=== PATIENT | male | born 1985 | race Caucasian/White ===

== ENCOUNTER 2024-04-19 14:16 | Emergency (ER) | payer BC, SELFPAY ==
[2024-04-19 14:21] VITALS: BP 125/84; PULSE 77; TEMP 37.3; O2SAT 98; BMI 23.0
--- NOTE | 2024-04-19 14:29 | ECG_ITS ---
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
--- NOTE | 2024-04-19 14:29 | XR_ITS ---
The [address] [address] Patient Name: DARLENE NUNEZ MRN: [id number] date: 1985 Sex: M Assigned Patient Location: ER Current Patient Location: ER Accession/Order Number: [id number] Exam Date: 04/19/2024 14:48 Report Date: 04/19/2024 15:02 At the request of: GHANSHYAM GUILLORY Procedure: XR chest 2V EXAMINATION: XR chest 2V HISTORY: pain COMPARISON: No relevant comparison available. TECHNIQUE: PA and lateral FINDINGS: LUNGS: No significant pulmonary parenchymal abnormalities. VASCULATURE: No increased pulmonary vasculature. PLEURA: No pneumothorax, effusion, or pleural thickening. CARDIAC: No cardiomegaly or cardiac silhouette abnormality. MEDIASTINUM: No visible mass or adenopathy. BONES: No fracture or visible bone lesion. OTHER: Negative. XR/XR chest 2V IMPRESSION: No acute cardiopulmonary process Electronically authenticated by: MARCIANO HOLGUIN Date: 04/19/2024 15:02
--- NOTE | 2024-04-19 14:33 | ED.GENADUL1 ---
HPI HPI - General Adult General Chief complaint: Chest Pain Stated complaint: SOB, CHEST PAIN Time Seen by Provider: 04/19/24 14:17 Source: patient Mode of arrival: walk-in History of Present Illness HPI narrative: Patient presents to ED complaining of some chest and back pain. He also complains of fatigue and low-grade fevers. He said this started a couple of days ago. He was at work today and normally on his lunch break he just sort of relaxes but he was falling asleep on the lunch break. He said something must be wrong because he is never really this tired and he has pain in between his shoulder blades and in the chest. No shortness of breath, no cardiac history no family history of cardiac issues. No known sick contacts in the home. He denies sore throat and congestion. He does complain of a mild headache as well. Vital signs are normal here on arrival low-grade temp at 99.2 Related Data Previous Rx's ?Medication ?Instructions ?Recorded methylprednisolone 4 mg tablets in 4 mg PO DAILY #21 ea 04/19/24 a dose pack (Medrol (Jay)) Allergies Allergy/AdvReac Type Severity Reaction Status Date / Time No Known Drug Allergies Allergy Verified 04/19/24 14:24 Opioid HPI Opioid Management Most Recent Opioid Data: No Data to Display Review of Systems ROS Status of ROS 10 or more systems reviewed and unremarkable except as noted in history and below Exam Narrative Exam Narrative: Time Seen: [] Vital Signs: [Per nurse's notes.] General: [Alert] Skin: [Warm, dry, no rash.] Head: [Normocephalic, atraumatic.] Neck: [Supple, trachea midline.] Eye: [Pupils are equal, round and reactive to light, extraocular movements are intact, normal conjunctiva.] Ears, nose, mouth and throat: oral mucosa moist. Cardiovascular: [Regular rate and rhythm, no murmur.] Respiratory: [Lungs are clear to auscultation, respirations are non-labored, breath sounds are equal.] Chest wall: [No tenderness, no deformity.] Gastrointestinal: [Soft, nontender, non distended, normal bowel sounds.] MSK: 5 out of 5 muscle strength x 4 extremities no calf pain or edema Lymphatics: [No lymphadenopathy.] Psychiatric: [Cooperative, appropriate mood & affect.] Neurological: [Alert and oriented to person, place, time, and situation, no focal neurological deficit observed.] Constitutional Vital Signs, click to edit/add: Last Vital Signs Temp 99.2 F 04/19/24 14:21 Pulse 77 04/19/24 14:21 Resp 18 04/19/24 14:21 BP 125/84 04/19/24 14:21 Pulse Ox 98 04/19/24 14:21 O2 Del Method Room Air 04/19/24 14:21 Course Vital Signs Vital signs: Vital Signs Temperature 99.2 F 04/19/24 14:21 Pulse Rate 77 04/19/24 14:21 Respiratory Rate 18 04/19/24 14:21 Blood Pressure 125/84 04/19/24 14:21 Pulse Oximetry 98 04/19/24 14:21 Oxygen Delivery Method Room Air 04/19/24 14:21 Temperature 99.2 F 04/19/24 14:21 Pulse Rate 77 04/19/24 14:21 Respiratory Rate 18 04/19/24 14:21 Blood Pressure 125/84 04/19/24 14:21 Pulse Oximetry 98 04/19/24 14:21 Oxygen Delivery Method Room Air 04/19/24 14:21 Medical Decision Making MDM Narrative Medical decision making narrative: Patient's labs are negative for any acute findings. He does have a low-grade fever here. No flu no COVID. Chest x-ray is clear showing no pneumonia. Most likely a different viral infection that is causing him to feel fatigue headache and have some chest discomfort. I will place him on steroids for pleurisy. Take Tylenol Motrin for the fever. Return to ED if worsening pain. Patient is not hypoxic or tachycardic, no indication for PE on exam or with vital signs. He does not have severe pain with breathing in and does not get winded with walking. Again most likely viral syndrome but follow-up closely with family doctor or return to ED if worsening symptoms. Differential Diagnosis Differential Diagnosis: Flu COVID viral syndrome chest pain Lab Data Lab results reviewed: Yes I reviewed the patient's lab results Labs: Lab Results 04/19/24 04/19/24 Range/Units 14:30 14:32 WBC 7.2 (4.0-11.0) 10^3/uL RBC 4.52 L (4.70-6.10) 10^6/uL Hgb 13.1 L (14.0-18.0) g/dL Hct 38.4 L (42.0-54.0) % MCV 85.0 (80.0-94.0) fL MCH 29.0 (25.9-34.0) pg MCHC 34.1 (29.9-35.2) g/dL RDW 12.4 (11.0-15.0) % Plt Count 260 (150-450) 10^3/uL MPV 9.3 L (9.5-13.5) fL Neut % (Auto) 61.8 (43.0-75.0) % Lymph % (Auto) 32.1 (20.5-60.0) % [place] % (Auto) 4.9 (1.7-12.0) % Eos % (Auto) 0.7 L (0.9-7.0) % Baso % (Auto) 0.4 (0.2-2.0) % Neut # (Auto) 4.4 (1.4-6.5) 10^3/uL Lymph # (Auto) 2.3 (1.2-3.8) 10^3/uL [place] # (Auto) 0.4 (0.3-0.8) 10^3/uL Eos # (Auto) 0.1 (0.0-0.7) 10^3/uL Baso # (Auto) 0.0 (0.0-0.1) 10^3/uL Abs Immat Gran (auto) 0.01 (0.00-0.03) 10^3/uL Imm/Tot Granulo (auto) 0.1 (0.0-0.5) % Sodium 141 (136-145) mmol/L Potassium 3.7 (3.5-5.1) mmol/L Chloride 103 (98-107) mmol/L Carbon Dioxide 29.2 (21.0-32.0) mmol/L Anion Gap 12.5 BUN 13.0 (7.0-18.0) mg/dL Creatinine 1.25 (0.70-1.30) mg/dL Est GFR ( Amer) >60 (>=60 mL/min/1.73m^2) Est GFR (Non-Af Amer) >60 (>=60 mL/min/1.73m^2) BUN/Creatinine Ratio 10.4 Glucose 103 (74-106) mg/dL Calcium 9.4 (8.5-10.1) mg/dL Total Bilirubin 0.9 (0.2-1.0) mg/dL AST 21 (15-37) U/L ALT 29 (16-63) U/L Alkaline Phosphatase 64 (46-116) U/L Troponin I High Sens 4.4 (4.0-76.1) pg/mL Total Protein 7.1 (6.4-8.2) g/dL Albumin 4.3 (3.4-5.0) g/dL Globulin 2.8 g/dL Albumin/Globulin Ratio 1.5 Influenza Type A Ag Negative Influenza Type B Ag Negative SARS-CoV-2 Ag (CV2AG) Negative (NEGATIVE) ECG Data Attestation: I personally reviewed and interpreted this ECG as follows: Interpretation: EKG INTERPRETATION Time: [] 1426 Rate: [] 76 Rhythm: _ [] Normal sinus rhythm ST segments: _ [] No acute ST elevation or depression T waves: _ [] Ectopy: _ [] P wave/[place] interval: _ [] QRS interval: _ [] QT interval: _ [] Comparison: _ [] Comparison EKG date: [] Performed by: [self] benign early repull Discharge Plan Discharge Chief Complaint: Chest Pain Clinical Impression: Acute viral syndrome Patient Disposition: Home, Self-Care Time of Disposition Decision: 15:23 Condition: Good Mode of Transportation: Private Vehicle Prescriptions / Home Meds: New methylprednisolone [Medrol (Jay)] 4 mg tablets,dose pack 4 mg PO DAILY Qty: 21 0RF Rx Instructions: Medrol dosepak disp one taper as directed Print Language: [place] Citizen Instructions: Viral Syndrome (ED) Referrals: ALLEN HERNANDEZ [Primary Care Provider] - 1 week Discharge Date/Time: 04/19/24 15:37
[2024-04-19 14:54] LABS: Basophils Percent Auto 0.4 % (0.2-2.0); Eosinophils Absolute Auto 0.1 10^3/uL (0.0-0.7); Eosinophils Percent Auto 0.7 % (0.9-7.0); Hematocrit 38.4 % (42.0-54.0); Hemoglobin 13.1 g/dL (14.0-18.0); Immature Granulocytes Abs Auto 0.01 10^3/uL (0.00-0.03); Immature Granulocytes Pct Auto 0.1 % (0.0-0.5); Lymphocytes Absolute Auto 2.3 10^3/uL (1.2-3.8); Lymphocytes Percent Auto 32.1 % (20.5-60.0); Mean Corpuscular HGB Conc 34.1 g/dL (29.9-35.2); Mean Platelet Volume 9.3 fL (9.5-13.5); Monocytes Absolute Auto 0.4 10^3/uL (0.3-0.8); Monocytes Percent Auto 4.9 % (1.7-12.0); Neutrophils Absolute Auto 4.4 10^3/uL (1.4-6.5); Neutrophils Percent Auto 61.8 % (43.0-75.0); Platelet Count 260 10^3/uL (150-450); Red Blood Count 4.52 10^6/uL (4.70-6.10); Red Cell Distribution Width 12.4 % (11.0-15.0); White Blood Count 7.2 10^3/uL (4.0-11.0)
[2024-04-19] MEDS: 0.9 % SODIUM CHLORIDE 500 ML IV (15:00)
[2024-04-19] MEDS: KETOROLAC TROMETHAMINE 30 MG/ML VIAL 15 MG IVP (15:00)
[2024-04-19 15:04] LABS: Influenza Virus A Antigen Negative; Influenza Virus B Antigen Negative; Internal Control Within Normal Limits; SARS-CoV-2 Ag NEGATIVE (NEGATIVE)
[2024-04-19 15:10] LABS: Alanine Aminotransferase 29 U/L (16-63); Albumin Globulin Ratio 1.5; Albumin Level 4.3 g/dL (3.4-5.0); Alkaline Phosphatase 64 U/L (46-116); Anion Gap 12.5; Aspartate Amino Transferase 21 U/L (15-37); BUN Creatinine Ratio 10.4; Bilirubin Total 0.9 mg/dL (0.2-1.0); Calcium 9.4 mg/dL (8.5-10.1); Carbon Dioxide 29.2 mmol/L (21.0-32.0); Chloride 103 mmol/L (98-107); Estimated GFR (African America >60 (>=60 mL/min/1.73m^2); Estimated GFR (Non-African Ame >60 (>=60 mL/min/1.73m^2); Globulin 2.8 g/dL; Glucose 103 mg/dL (74-106); Potassium 3.7 mmol/L (3.5-5.1); Sodium 141 mmol/L (136-145); Total Protein 7.1 g/dL (6.4-8.2); Troponin I High Sensitivity 4.4 pg/mL (4.0-76.1)
== END 2024-04-19 15:37 | disposition home or self-care (01) ==
PROVIDERS: Emergency Provider Emergency Medicine; PCP Family Medicine
DX: B34.9 Viral infection, unspecified (principal); R50.9 Fever, unspecified
CPT/HCPCS: 36415; 71046; 80053; 84484; 85025; 87804; 87811; 93005; 96374; 99285; J1885